=== PATIENT | male | born 1975 | race Caucasian/White ===

== ENCOUNTER 2024-10-31 16:33 | Outpatient (AMB) | payer OTHER, SELFPAY ==
--- OUTSIDE RECORDS SUMMARY | 2024-10-31 17:45 | XMS_ITS | Patient Health Record ---
Author Organization [facility] Address [address] [place] [address] Care Team Providers Care Customer Order Clerk Name Role Phone Adis Alcantara Primary Care Provider Reason For Referral No Information Medications Medication SIG (Take, Route, Frequency, Duration) Notes Start Date End Date Status OXYCODONE HCL 5 MG TABLET 0 1 tab q 6 h prn; Duration: 30 *please review for potential update for e-prescription and drug interaction check* 100% relief 03/01/2017 Active PROAIR HFA 90 MCG INHALER MCG/ACTUATION 0 PRn; Duration: 30 *please review for potential update for e-prescription and drug interaction check* 03/01/2017 Active VERAPAMIL ER 180 MG TABLET 11 1 bid for HTN; Duration: 30 *please review for potential update for e-prescription and drug interaction check* 03/01/2017 Active Acetaminophen Extra Strength 500 MG 0 Oral 2 tabs prn, uses 14/week; Duration: 30 03/01/2017 Active CYMBALTA 30 MG CAPSULE 30 Take 1 capsule qd; Duration: 30 *please review for potential update for e-prescription and drug interaction check* must be seen in office visit for further refills / last seen 03/2017 was to be seen in 1 mo 04/30/2017 Active FLUTICASONE-SALMETEROL 55-14 MCG/ACTUATION 0 1-2 sprays; Duration: 30 *please review for potential update for e-prescription and drug interaction check* 03/01/2017 Active HYDROCHLOROTHIAZIDE 25 MG TAB 0 1 qam; Duration: 30 *please review for potential update for e-prescription and drug interaction check* 03/01/2017 Active LOSARTAN POTASSIUM 50 MG TAB 0 1 qamk; Duration: 30 *please review for potential update for e-prescription and drug interaction check* 03/01/2017 Active Gabapentin 600 MG 150 Oral 2 tabs qam and 3 tabs qhs.; Duration: 30 04/08/2017 Active [id number]-[id number]-[id number] TB 50-325-40 MG 0 1 tab q 4-6 hours. used 8 tabs in 12 days.; Duration: 30 *please review for potential update for e-prescription and drug interaction check* ineff 03/01/2017 Active Escitalopram Oxalate 10 MG 0 Oral 1 qam; Duration: 30 03/01/2017 Active Plan Of Treatment No Information Insurance Providers Payer Name Payer Address Payer Phone Subscriber Number Group Number Insured Name Patient Relationship to Insured Coverage Start Date Coverage End Date [facility] [address] [place] [id number] Dann Davalos Self - patient is the insured
== END 2024-10-31 16:34 | disposition home or self-care (01) ==
LOC: HO.HMGAL 16:33
PROVIDERS: PCP Internal Medicine; Visit Provider Registered Nurse Emergency
DX: J30.89 Other allergic rhinitis (principal)
CPT/HCPCS: 95117; 95165

== ENCOUNTER 2024-12-04 14:18 | Outpatient (AMB) | payer BC, SELFPAY | END 2024-12-04 14:19 | disposition home or self-care (01) | LOC: HO.HMGAL 14:18 | PROVIDERS: PCP Nurse Practitioner Family; Visit Provider Registered Nurse Emergency | DX: J30.89 Other allergic rhinitis (principal) | CPT/HCPCS: 95117; 95165 ==

== ENCOUNTER 2024-12-18 14:27 | Outpatient (AMB) | payer BC, SELFPAY ==
--- OUTSIDE RECORDS SUMMARY | 2024-12-18 16:52 | XMS_ITS | Patient Health Record ---
Author Organization [facility] Address [address] [place] [address] Care Team Providers Care Game Show Host Name Role Phone Adis Alcantara Primary Care Provider [phone] Reason For Referral No Information Medications Medication [...] 3 tabs qhs.; Duration: 30 04/08/2017 Active [id number]-BROS-[id number] TB 50-325-40 MG 0 1 tab q [...] Insured Coverage Start Date Coverage End Date [facility] [address] [place] [id number] Dann Davalos Self - patient is the insured
== END 2024-12-18 14:30 | disposition home or self-care (01) ==
LOC: HO.HMGAL 14:27
PROVIDERS: PCP Nurse Practitioner Family; Visit Provider Registered Nurse Emergency
DX: J30.89 Other allergic rhinitis (principal)
CPT/HCPCS: 95117; 95165

== ENCOUNTER 2025-01-01 14:27 | Outpatient (AMB) | payer BC, SELFPAY ==
--- OUTSIDE RECORDS SUMMARY | 2025-01-01 18:15 | XMS_ITS | Patient Health Record ---
Author Organization [facility] Address [address] [place] [address] Care Team Providers Care Public Health Engineer Name Role Phone Adis Alcantara Primary Care [...] 3 tabs qhs.; Duration: 30 04/08/2017 Active [id number]-[id number] TB 50-325-40 MG 0 1 tab q [...] Insured Coverage Start Date Coverage End Date [facility] [address] [place] [id number] Dann Davalos Self - patient is the insured
== END 2025-01-01 14:28 | disposition home or self-care (01) ==
LOC: HO.HMGAL 14:27
PROVIDERS: PCP Nurse Practitioner Family; Visit Provider Registered Nurse Emergency
DX: J30.89 Other allergic rhinitis (principal)
CPT/HCPCS: 95117; 95165

== ENCOUNTER 2025-01-22 10:55 | Outpatient (AMB) | payer BC, SELFPAY ==
--- OUTSIDE RECORDS SUMMARY | 2025-01-21 23:59 | XMS_ITS | Continuity of Care Document ---
Author Organization [facility] Address [address] [place] [address]- Care Team Providers Care Washery Engineer Name Role Phone Terrell BACK TENDER CYLINDER, Naga Bonilla Primary Care Physician [phone] Encounter [facility] [place](s[place] 12/22/24 - 01/21/25 [facility] [address] [place] [address]- Encounter Type: Triage Allergies, Adverse Reactions, Alerts Substance Criticality Severity Reaction Reaction Severity Status Biaxin Active Immunizations Given and Recorded Vaccine Date Status Refusal Reason SARS-CoV-2 (COVID-19) mRNA-1273 vaccine 07/31/20 R ecorded SARS-CoV-2 (COVID-19) mRNA-1273 vaccine 07/01/20 R ecorded influenza virus vaccine, inactivated 1 01/12/18 Gi emil influenza virus vaccine, inactivated 2 12/18/16 Gi emil tetanus-diphtheria toxoids (Td) 12/18/16 Given 1Result Comment: [01/12/2018] [facility] 29791-808-34 2Result Comment: regular dose [facility] 55267-869-25 Medications Compression Stockings See Instructions, # 1 each, Maintenance, surgical, calf length 30-40 mm Hg. Use as directed, 12/12/20 4:32:00 PM EDT, Supply Start Date: 12/12/20 Status: Ordered Medication Dispense Status: Completed Quantity: 1.0 Unit: each Total Allowed Fills: 1 Fills Dispensed: 0 Indications: Localized edema; CPAP Machine See Instructions, # 1 each, Maintenance, USE NIGHTLY FOR YURI G47.33 Patient should either be started on AutoCPAP 8-20 cm H2O with compliance data followed, 5/15/18 1:18:51 PM EDT, Compound Start Date: 07/27/17 Status: Ordered Medication Dispense Status: Completed Quantity: 1.0 Unit: each Total Allowed Fills: 1 Fills Dispensed: 0 CPAP Equipment See Instructions, # 1 each, Refills 11, Tot. Refills 11, Maintenance, YURI - G47.33 MASK, TUBING, FILTERS, HEAD GEAR, CHIN STRAP, WATER CHAMBER, 07/27/17 1:18:47 PM EDT, Compound Start Date: 07/27/17 Status: Ordered Medication Dispense Status: Completed Quantity: 1.0 Unit: each Total Allowed Fills: 12 Fills Dispensed: 0 Metoprolol Tartrate 25 mg oral tablet 1 tablet, By Mouth, 2 times a day, # 180 tablet, 3 Refills, Maintenance, 06/02/24 2:18:00 PM EDT, [facility]/pharmacy #[id number], 174, cm, 06/02/24 13:55:00 EDT, Height, 82, kg, 06/13/22 11:25:00 EDT, Dry Weight Start Date: 06/02/24 Status: Ordered Medication Dispense Status: Completed Quantity: 180.0 Unit: tablet Total Allowed Fills: 4 Fills Dispensed: 0 NIFEdipine (Eqv-Procardia XL) 90 mg oral tablet, extended release 1 tablet, By Mouth, Daily, # 90 tablet, 3 Refills, Maintenance, 06/02/24 2:18:00 PM EDT, [facility]/pharmacy #[id number], 174, cm, 06/02/24 13:55:00 EDT, Height, 82, kg, 06/13/22 11:25:00 EDT, Dry Weight Start Date: 06/02/24 Status: Ordered Medication Dispense Status: Completed Quantity: 90.0 Unit: tablet Total Allowed Fills: 4 Fills Dispensed: 0 SUMAtriptan 100 mg oral tablet 1 tablet, By Mouth, Daily, PRN NEEDED FOR MIGRAINES, REPEAT IN 2 HOURS IF NEEDED, # 9 tablet, 6 Refills, Maintenance, 12/22/24 4:00:00 PM EDT, 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 Anxiety Confirmed Active Sinusitis, chronic Confirmed Active Erectile dysfunction Confirmed Active DOREEN (generalized anxiety disorder) Confirmed Active H/O bilateral hip replacements Confirmed Active Hypercholesteremia Confirmed Active Hypertension Confirmed Active Lipoma of back Confirmed Active DJD (degenerative joint disease), lumbar Confirmed Active Migraine headache Confirmed Active Anxiety and depression Confirmed Active Osteoarthritis, hip, bilateral Confirmed Active MDD (major depressive disorder), single episode, severe Confirmed Active MDD (major depressive disorder), recurrent episode, severe Confirmed Active Synovitis/tenosynovitis - wrist Confirmed Active Social History Social History Type Response Smoking Status Never (less than 100 in lifetime); Tobacco user in household: No;Smokeless tobacco user within last 30 days; Type: Oral entered on: 12/14/19 Sex Sex Representation Male (finding) Patient Care team information Care Team Personnel Name: Darrell Luz MD Position: [facility] Renal MD Member Role: Lifetime Consulting Physician Address: [address] [place] [address] [id number] [facility] [place] [address]- Telecom: Name: Ag Wray MD Position: [facility] Renal MD Member Role: Lifetime Consulting Physician Address: [address] [place] [address] [address] [facility] [place] [address]- [place] Telecom: Name: Denise Parkinson RN Position: [facility] RN Member Role: Primary Care Nurse Name: Anitra Foster RN Position: [facility] RN Member Role: Primary Care Nurse Name: Laina Lowe RN Position: [facility] RN Member Role: Primary Care Nurse Name: Casey Rasmussen III, RN Position: [facility] RN Member Role: Primary Care Nurse Name: Tammi Mccracken RN Position: [facility] RN Vonda Member Role: Primary Care Nurse Name: Naga Tejada NP Position: [facility] PCO Associate Professional Member Role: PCP Address: [address] [place] [address] [address] [place] [address]- Telecom: Name: Jonnie Wellington NP Position: [facility] Associate Professional Member Role: Primary Care Nurse Address: [address] [place] [address] Telecom: Name: Farrah NAGEL, Genoveva Position: S RN Member Role: Primary Care Nurse Care Team Related Persons Name: SAJI DONOVAN Name: HUMAIRA DONOVAN Insurance Providers Guarantor name: AMBER DONOVAN Health Plan Information #: 1 Payer: [employer] [facility] Payer Identifier: NA Member Number: [id number] Group Number: [id number] Subscriber Identifier: NA Relationship to Subscriber: self Coverage Type: NA Coverage Verification Date: NA Telecom: NA Address:
== END 2025-01-22 10:56 | disposition home or self-care (01) ==
LOC: HO.HMGAL 10:55
PROVIDERS: PCP Nurse Practitioner Family; Visit Provider Registered Nurse Emergency
DX: J30.89 Other allergic rhinitis (principal)
CPT/HCPCS: 95117; 95165

== ENCOUNTER 2025-02-12 13:38 | Outpatient (AMB) | payer BC, SELFPAY | END 2025-02-12 13:39 | disposition home or self-care (01) | LOC: HO.HMGAL 13:38 | PROVIDERS: PCP Nurse Practitioner Family; Visit Provider Registered Nurse Emergency | DX: J30.89 Other allergic rhinitis (principal) | CPT/HCPCS: 95117; 95165 ==

== ENCOUNTER 2025-02-26 12:45 | Outpatient (AMB) | payer BC, SELFPAY ==
--- OUTSIDE RECORDS SUMMARY | 2025-02-26 18:21 | XMS_ITS | Patient Health Record ---
Author Organization [facility] Address [address] [place] [address] Care Team Providers Care Solid Waste Truck Driver Name Role Phone Adis Alcantara Primary Care Provider [phone] Reason For Referral No Information Medications Medication [...] 3 tabs qhs.; Duration: 30 04/08/2017 Active [id number] TB 50-325-40 MG 0 1 tab q [...] Insured Coverage Start Date Coverage End Date [facility] [address] [place] [id number] Dann Davalos Self - patient is the insured
== END 2025-02-26 12:46 | disposition home or self-care (01) ==
LOC: HO.HMGAL 12:45
PROVIDERS: PCP Nurse Practitioner Family; Visit Provider Registered Nurse Emergency
DX: J30.89 Other allergic rhinitis (principal)
CPT/HCPCS: 95117; 95165